=== PATIENT | female | born 1960 | race Caucasian/White ===

== ENCOUNTER 2019-03-06 10:22 | Day surgery (SDC) | payer OTHER ==
[2019-03-06] MEDS ORDERED: LACTATED RINGERS 1,000 ML IV ONE (11:02)
[2019-03-06] MEDS ORDERED: fentaNYL 250 MCG/5 ML VIAL IVP ONE (11:56)
[2019-03-06] MEDS ORDERED: MIDAZOLAM 2 MG/2 ML VIAL IVP ONE (11:56)
[2019-03-06 12:52] VITALS: BP 123/75
== END 2019-03-06 10:23 | disposition home or self-care (01) ==
LOC: SDS 10:22
PROVIDERS: ATTEND Surgery
PROC: 0DBN8ZZ Excision of Sigmoid Colon, Via Natural or Artificial Opening Endoscopic (ICD-10-PCS; principal; 2019-03-06 11:45)
DX: Z12.11 Encounter for screening for malignant neoplasm of colon (principal); D12.5 Benign neoplasm of sigmoid colon; K64.8 Other hemorrhoids; Z80.0 Family history of malignant neoplasm of digestive organs; I10 Essential (primary) hypertension; Z87.891 Personal history of nicotine dependence
CPT/HCPCS: 45380; J3010; J7120